=== PATIENT | female | born 1955 | race African-American/Black ===

== ENCOUNTER 2021-05-15 00:06 | Emergency (ER) | payer OTHER ==
[~2021-05-15] VITALS: Ht 160 cm; Wt 93.0 kg
[2021-05-15 00:14] VITALS: BP 174/75
== END 2021-05-15 04:33 | disposition home or self-care (01) ==
LOC: ER 00:06
DX: E11.649 Type 2 diabetes mellitus with hypoglycemia without coma (principal); S93.602A Unspecified sprain of left foot, initial encounter; I10 Essential (primary) hypertension; Z79.4 Long term (current) use of insulin; X58.XXXA Exposure to other specified factors, initial encounter; Y93.89 Activity, other specified; Y92.018 Other place in single-family (private) house as the place of occurrence of the external cause
CPT/HCPCS: 73630; 82962; 99283

== ENCOUNTER 2024-06-07 01:59 | Emergency (ER) | payer OTHER ==
[~2024-06-07] VITALS: Ht 165.1 cm; Wt 88.0 kg
[2024-06-07 02:07] VITALS: TEMP 36.8; O2SAT 99
[2024-06-07] MEDS ORDERED: BO1 TP (02:27)
[2024-06-07] MEDS ORDERED: AMOX1TAB16 MT (02:27)
[2024-06-07] MEDS: TETANUS, DIPHTHERIA, PERTUSSIS VAC/PF 0.5ML (>10YR OLD) IM ONE (02:37)
[2024-06-07 02:49] VITALS: BP 160/82; PULSE 62; RESP 19; O2SAT 99
== END 2024-06-07 02:49 | disposition home or self-care (01) ==
LOC: ER 02:26
DX: S60.511A Abrasion of right hand, initial encounter (principal); E11.9 Type 2 diabetes mellitus without complications; I10 Essential (primary) hypertension; Y04.1XXA Assault by human bite, initial encounter; Y93.89 Activity, other specified; Y92.89 Other specified places as the place of occurrence of the external cause; Y99.8 Other external cause status
CPT/HCPCS: 90471; 90715; 99283